=== PATIENT | male | born 1975 | race African-American/Black ===

== ENCOUNTER 2018-01-20 09:55 | Emergency (ER) | payer SELFPAY ==
[2018-01-20] MEDS ORDERED: Lorazepam 2 MG/ML VIAL ONE (10:50)
[2018-01-20] MEDS ORDERED: Meclizine HCl 25 MG TAB ONE (10:50)
[2018-01-20] MEDS ORDERED: Dexamethasone 10 MG/ML VIAL ONE ×2 (10:50→10:54)
[2018-01-20 10:53] LABS: Hemoglobin 16.1 g/dL (14.0-18.0); Mean Corpuscular HGB CONC 34.3 g/dL (32.0-36.0); Mean Corpuscular Hemoglobin 30.8 pg (27.0-31.0); Mean Corpuscular Volume 89.8 fL (78.0-98.0); Mean Platelet Volume 7.8 fL (7.4-10.4); Platelet Count 211 thou/uL (130-400); RBC Distribution Width 12.4 % (11.5-14.5); Red Blood Cell (RBC) Count 5.22 mill/uL (4.70-6.10); White Blood Cell (WBC) Count 8.5 thou/uL (4.8-10.8)
[2018-01-20 11:10] LABS: ALT (SGPT) 18 U/L (8-55); AST (SGOT) 18 U/L (5-34); Albumin 4.2 g/dL (3.5-5.0); Alkaline Phosphatase 72 U/L (40-150); Anion Gap 13 mmol/L (10-20); BUN (Urea Nitrogen) 13 mg/dL (8.9-20.6); Bilirubin, Total 0.6 mg/dL (0.2-1.2); CK (CPK) 206 U/L (30-200); Calc. Creatinine Clearance 0 mL/min (70-130); Calcium 8.7 mg/dL (7.8-10.44); Carbon Dioxide 24 mmol/L (22-29); Chloride 102 mmol/L (98-107); Estimated GFR-MDRD 76; Globulin 3.6 g/dL (2.4-3.5); Glucose 102 mg/dL (70-105); Lipase 18 U/L (8-78); Potassium 4.1 mmol/L (3.5-5.1); Protein, Total 7.8 g/dL (6.0-8.3); Sodium 135 mmol/L (136-145)
[2018-01-20 11:14] LABS: CKMB 0.8 ng/mL (0-6.6); Troponin I Less than 0.010 ng/mL (< 0.028)
--- NOTE | 2018-01-20 11:22 | RAD ---
PORTABLE CHEST 1 VIEW: Date: 01/20/18 Time: 1016 hours HISTORY: Chest pain, nausea, diarrhea, chills, and dizziness. FINDINGS: The heart size is normal. No focal areas of consolidation, pneumothoraces, or pleural effusions are s een. IMPRESSION: No acute process. POS: [facility]
[2018-01-20 11:28] LABS: Band 24 % (5-11); Lymphocytes 4 % (21-51); MDiff Complete? YES; Neutrophil 66 % (42-75); RBC Morphology Normal; Reactive Lymphocytes 6 % (0-10); Reflex for Review?? NO; Vacuoles MODERATE
[2018-01-20 11:29] LABS: HIV (1/2) Antibody/Antigen Non-Reactive (NonReactive); HIV 1/2 INDEX 0.09 S/CO (<1.00)
== END 2018-01-20 13:16 | disposition home or self-care (01) ==
LOC: ERS 09:55
DX: R42 Dizziness and giddiness (principal); R19.7 Diarrhea, unspecified; E11.9 Type 2 diabetes mellitus without complications
CPT/HCPCS: 36415; 71045; 80053; 82553; 83690; 84484; 85025; 87389; 93005; 96361; 96374; 96375; J1100; J2060